=== PATIENT | male | born 1985 | race Caucasian/White ===

== ENCOUNTER 2021-12-20 07:16 | Day surgery (SDC) | payer MEDICAID, SELFPAY ==
--- NOTE | 2021-12-19 21:11 | W.PM.DSUDISC ---
Discharge Plan Disposition Patient Disposition: HOME Condition: Good Discharge Details Reason For Visit: EGD and Colonoscopy Attending Provider: Daniel Musa Primary Care Provider: Zelda Shay Home Meds and New Rx's Prescriptions: Continued esomeprazole magnesium [Nexium] 20 mg capsule,delayed release(DR/EC) 20 mg PO DAILY polyethylene glycol 3350 17 gram/dose powder 238 g PO ONCE Qty: 238 0RF Rx Instructions: take per colonoscopy instructions bisacodyl [Dulcolax (bisacodyl)] 5 mg tablet,delayed release (DR/EC) 5 mg PO ONCE Qty: 4 0RF Rx Instructions: take per colonoscopy instructions Discharge Instructions Instructions: Colonoscopy (DC), Gastric Polyps (DC) Additional Instructions: 1. If tolerated, consume a soft, low fiber diet for 1-2 days. [address] Do not drive, drink alcohol, operate machinery, make critical decisions, or do activities that require coordination or balance for 24 hours. 3. Because air was put into your colon during the procedure, expelling air from your rectum (passing gas or farting) is normal. 4. You may not have a bowel movement for 1-3 days because of the colonoscopy prep. This is normal. 5. You may experience a sore throat for 24 to 48 hours. You may use throat lozenges or gargle with warm salt water to relieve the discomfort. 6. Because air was put into your stomach during the procedure, you may experience some belching. 7. Go directly to the emergency room if you notice any of the following: Develop chills (warm to touch), or if you have a thermometer and your temperature is above 101 Difficulty breathing or difficultly swallowing Persistent vomiting Severe abdominal pain, other than gas cramps Severe chest pain Black, tarry stools Any bleeding ? exceeding one tablespoon 8. Call your physician if the site where your intravenous was started becomes red, swollen, painful, and warm to touch. 9. Your physician has reviewed your pre-procedure medications. Please continue to take those medications as previously ordered. You will be given specific information/education regarding any changes to your medications before leaving. Activity:: Activity as Tolerated Diet:: As Tolerated Discharge Orders Discharge Orders: Discharge Order (Routine); Ordered 12/20/21 Ordered By: Daniel Musa DS: Diagnosis Discharge Diagnosis (1) Chronic GERD: Status: Acute Asessment and Plan: I will contact you about the biopsy results
--- NOTE | 2021-12-19 21:12 | W.COLOREPORT ---
Colonoscopy Report Date of procedure: 12/20/21 Pre-op diagnosis general: GERD Post-op diagnosis procedure note: other (Gastric polyp, diverticulosis, hemorrhoids) Procedure: EGD and colonoscopy Surgeon: Nilson Musa Anesthesia Type: General:No Airway Estimated blood loss (mL): 10 Pathology: other (gastric polyp) Complications: None Disposition: same day Indications: Fuad is a 36-year-old male with longstanding gastroesophageal reflux disease. Additionally, he has had a colonoscopy in the past that identified polyps. He was advised to follow-up in 5 years. Prep: Miralax/Dulcolax Procedure Start Time: 08:36 Procedure End Time: :08 Retraction Time: 22 Findings: Gastric polyp along greater curve in the body before the incisura Mild diverticulosis mild hemorrhoids Procedure Description: After the initiation of monitored anesthetic care, and with the assistance of a bite block, I advanced a standard gastroscope through the mouth past the hypopharynx and into the esophagus.? Under the direct vision of the scope, I advanced down the esophagus into the stomach.? Once I entered the stomach, I performed a brief inspection, followed by retroflexion towards the gastric cardia.? This appeared normal.? After that, I gently advanced the scope around the incisura angularis and examined the pylorus.? This also appeared normal.? Next, I advanced the scope through the pylorus into the duodenum.? The mucosa was pink and healthy appearing.? There were no abnormalities.? I was able to visualize bile draining into the duodenum through the ampulla Vater. ?Next, I began retracting the endoscope.? Again, I returned to the stomach which was carefully examined once again. Immediately cephalad to the incisura angularis along the greater curvature, I identified a 0.75 cm polyp. It was slightly pedunculated. I performed a polypectomy using cold forceps. There was minimal bleeding. I then gently desufflated some of the stomach, and withdrew the endoscope into the distal esophagus. The Z-line was normal-appearing around 37 cm. ?Finally, I withdrew the scope along the length of the esophagus taking great care to examine the entirety of the mucosa.? I did not appreciate any abnormalities. Next we moved the patient to the left lateral decubitus position. I began by performing an external anorectal exam.? Perineum and skin were normal, as was the anal verge.? There was mild evidence of fibrosed external hemorrhoids.? Next, I performed a digital rectal exam.? I did not appreciate any abnormal findings.? Next, I advanced a colonoscope into the rectal vault.? I performed retroflexion.? There were mild internal hemorrhoids.? Using insufflation, I then advanced the colonoscope beyond the rectal folds and into the sigmoid colon before advancing towards the cecum.? There were scattered diverticula within the sigmoid colon. The quality of the prep was excellent.? The scope was noted to be in the cecum by identification of the ileocecal valve and appendiceal orifice.? I then began withdrawing the colonoscope using repeated irrigation as necessary for full evaluation of the colonic mucosa. ?Once the scope was withdrawn to the level of the rectum, great care was taken to examine portions of the rectal folds.? Finally, the scope was withdrawn and the patient was brought to the same-day surgery recovery unit as the anesthetic wore off. ?The findings and instructions were shared with the patient prior to discharge.
[2021-12-20 07:15] VITALS: BP 136/94; PULSE 94; RESP 18; TEMP 36.5; O2SAT 100
[2021-12-20] MEDS: Lactated Ringers 1,000 ML 80 ML IV (07:35)
--- NOTE | 2021-12-20 08:14 | W.ANESPRE ---
General Info Date of Service Date Performed: 12/20/21 Height: 5 ft 6.5 in Weight: 85.4 kg Body Mass Index (BMI): 29.9 Surgical Procedure: Operation Date: 12/20/21 08:50 Proposed Procedure Side Surgeon p Colonoscopy/Gastroscopy Daniel Musa MD Meds Allergies and Home Medications Allergies Allergy/AdvReac Type Severity Reaction Status Date / Time Sulfa (Sulfonamide Allergy Intermediate Skin Rash Unverified 12/20/21 07:30 Antibiotics) doxycycline AdvReac Intermediate Fever Unverified 12/20/21 07:30 Home Medication Medication Instructions Recorded esomeprazole magnesium 20 mg 20 mg PO DAILY 09/24/18 capsule,delayed release (Nexium) bisacodyl 5 mg tablet,delayed 5 mg PO ONCE colonscopy bowel prep 11/21/21 release (Dulcolax (bisacodyl)) #4 tabs polyethylene glycol 3350 17 238 g PO ONCE colonoscopy prep 11/21/21 gram/dose oral powder #238 grams Current Visit Medications: Current Medications Generic Name Dose Route Start Last Admin Trade Name Carrie PRN Reason Stop Dose Admin Ringer's Solution 1,000 mls @ 80 mls/hr 12/20/21 06:00 12/20/21 07:35 IV 01/18/22 23:59 80 mls/hr INFUSION CASSY Administration IV Miscellaneous Supplies 1 each 12/20/21 06:00 Iv Access IV 01/18/22 23:59 DIRECTED CASSY Sodium Chloride 0 ml 12/20/21 06:00 Normal Saline Flush 10 Ml Syr IV 01/18/22 23:59 PRN PRN Sodium Chloride 0 ml 12/20/21 06:00 Normal Saline 10 Ml Vial IJ 01/18/22 23:59 DIRECTED PRN Sterile Water 0 ml 12/20/21 06:00 Water,Injection,Sterile 10 Ml Vial IJ 01/18/22 23:59 DIRECTED PRN PFSH Active Problems Active Problems: Problem Status Onset Code Chronic GERD K21.9 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 Family history of hyperlipidemia Z83.438 Heavy alcohol consumption Z72.89 Medical History Medical History Hx of Lyme disease -2014 Surgical History Surgical History S/P arthroscopy of left shoulder Tobacco Smoking/Tobacco Use Status: Former Tobacco Use Passive smoking exposure: Yes Second hand exposure: Yes Alcohol Alcohol Intake: current Alcohol intake frequency: 0-2 drinks per day Alcohol type: beer and hard liquor Substance Use Substance use: Never Substance use type: does not use Vital Signs and Lab Results Vital Signs Most Recent Vital Signs in EMR: Most Recent Vital Signs Temp Pulse Resp BP Pulse Ox 36.5 C 94 H 18 136/94 H 100 12/20/21 07:15 12/20/21 07:15 12/20/21 07:15 12/20/21 07:15 12/20/21 07:15 Lab Results Blood Type / Crossmatch: No Data to Display Complete Blood Count: No Data to Display Complete Metabolic Panel: No Data to Display Liver Function Panel: No Data to Display Coagulation Panel: No Data to Display Cardiac Panel: No Data to Display Arterial Blood Gas: No Data to Display Venous Blood Gas: No Data to Display Pancreas Panel: No Data to Display Thyroid Panel: No Data to Display Infectious Disease: No Data to Display Blood Cultures: No Data to Display Toxicology Panel: No Data to Display Anesthesia Assessment and Plan Anesthesia History Personal History: No History of Anesthesia Complications Family History: No Family History of Anesthesia Complications Exercise Tolerance Exercise Tolerance: Metabolic Equivalents>4 Pertinent Negatives Pertinent Negatives: No Symptoms of GERD (Well controlled with medication ), No Major Cardiovascular Symptoms or Complaints, No Major Pulmonary Symptoms or Complaints and No History of CVA/TIA Cardiac & Pulmonary Exam Cardiac Exam: Normal S1/S2 Heart Sounds Pulmonary Exam: Clear Bilateral Breath Sounds Implantable Cardiac Device Does patient have a Pacemaker or an ICD?: No Airway Exam Known Difficult Airway: No Mallampati Class: 1 Mouth Opening: Normal (> 3cm) Thyromental Distance: Greater than 3 cm Neck Range of Motion: Full ROM Neck Circumference: Normal Teeth Condition: Normal Dentition Airway Comments: #21 crown # 22 chipped ASA Classification ASA Score: ASA 4 Emergency Case?: No NPO Status NPO Status: NPO Clears >2 hours, Solids >8 hours Anesthesia Plan Resuscitation Status: Full Code Anesthesia Technique: General Anesthesia Airway Planned: Natural Airway Monitors Used: Standard Monitors
[2021-12-20 08:17] VITALS: BMI 29.9
--- NOTE | 2021-12-20 08:38 | STOM_PTH ---
PATIENT: Fuad Murillo LOC: [facility] U#:[id number] AGE/SX: 36/M ROOM: RE12/20/[address]: Daniel Musa MD : 1985 BED: DIS: 12/20/2021 SPEC #: [id number] RECD: 12/20/21 12:41 STATUS: [facility] #: [id number] ARETHA: 12/20/21 08:[address]: Daniel Musa DEPT: Surgical Specimen RECD BY: Ifeoma Albert ENTERED: 12/20/21 12:41 SP TYPE: STOMACH OTHR DR: Zelda Shay MD, DC Tissues: 1 - STOMACH BIOPSY 2 - ESOPHAGUS BIOPSY 3 - STOMACH BIOPSY Procedures: GROSS AND MICRO LEVEL 4 Comments: [id number]
[2021-12-20 09:19] VITALS: BP 134/89; PULSE 83; RESP 12; TEMPC 36.3; O2SAT 97
--- NOTE | 2021-12-20 09:19 | W.ANESPOSTOP ---
Postoperative Evaluation Date, Time and Location Date Performed: 12/20/21 Time Performed: 09:19 Patient Location: Day Surgery Unit Vital Signs Most Recent Imported Vital Signs: Most Recent Vital Signs Temp Pulse Resp BP Pulse Ox 36.5 C 94 H 18 136/94 H 100 12/20/21 07:15 12/20/21 07:15 12/20/21 07:15 12/20/21 07:15 12/20/21 07:15 Most Recent Manually Entered Vital Signs: Adult Blood Pressure: 134/89 Heart Rate: 83 Respirations: 12 Oxygen Saturation (%): 97 Temperature (C): 36.3 C Pain Score (0-10 Scale): 0 Assessment Mental Status: Awake (Alert & Oriented to Patient Baseline) Airway and Respiratory Function: Patent airway with normal (patient baseline) respiratory exam Cardiovascular Function: Hemodynamically Stable Hydration Status: Adequately Hydrated Nausea & Vomiting: No Nausea or Vomiting Pain: Pt. Denies Any Pain Peripheral Nerve Block: Patient did not receive a nerve block
[2021-12-20 09:20] VITALS: BP 134/89; PULSE 80; RESP 16; TEMP 36.2; O2SAT 97
[2021-12-20 09:50] VITALS: BP 142/92; PULSE 82; RESP 18; TEMP 36.2; O2SAT 97
== END 2021-12-20 10:20 | disposition home or self-care (01) ==
PROVIDERS: PCP Family Medicine; Visit Provider Surgery
PROC: (CPT 43239; principal; 2021-12-20 08:45)
DX: K21.9 Gastro-esophageal reflux disease without esophagitis (principal); Z12.11 Encounter for screening for malignant neoplasm of colon; K31.7 Polyp of stomach and duodenum; K64.8 Other hemorrhoids; K57.30 Diverticulosis of large intestine without perforation or abscess without bleeding; Z86.010 Personal history of colon polyps; K31.89 Other diseases of stomach and duodenum
CPT/HCPCS: 43239; 45378; 88305

== ENCOUNTER 2022-03-18 09:28 | Outpatient (CLI) | payer MEDICAID, SELFPAY ==
[2022-03-18 12:57] LABS: ALT 125 U/L (16-63); AST 58 U/L (15-37); Albumin 4.4 g/dL (3.4-5.0); Alkaline Phosphatase 50 U/L (46-116); Anion Gap 6.8 mmol/L (3-11); BUN 17 mg/dL (7-18); Bilirubin, Total 0.6 mg/dL (0.2-1.0); CO2 29.2 mmol/L (21.0-32.0); CREATININE 1.2 mg/dL (0.70-1.30); Calcium 9.3 mg/dL (8.5-10.1); Calculated LDL 175 mg/dL (<100); Chloride 101 mmol/L (98-107); Cholesterol 255 mg/dL (<200); Estimated GFR 79.38 (mL/min/1.73m2); Glucose 105 mg/dL (74-106); HDL Cholesterol 67 mg/dL (40-60); Potassium 4.5 mmol/L (3.5-5.1); Sodium 137 mmol/L (136-145); TSH (W/Ref FT4) 1.54 uIU/mL (0.36-3.74); Total Protein 7.9 g/dL (6.4-8.2); Triglyceride 65 mg/dL (<150)
[2022-03-18 13:04] LABS: GGT 100 U/L (15-85)
[2022-03-19 10:32] LABS: Lyme Ab w Rflx to Lyme Confirm Negative (Negative)
[2022-03-20 23:00] LABS: Anaplasma phagocytophilum Negative (Negative); B. miyamotoi PCR Negative (Negative); Babesia divergens/MO-1 Negative (Negative); Babesia duncani Negative (Negative); Babesia microti Negative (Negative); Ehrlichia chaffeensis Negative (Negative); Ehrlichia ewingii/canis Negative (Negative); Ehrlichia muris eauclairensis Negative (Negative)
== END 2022-03-18 09:29 | disposition home or self-care (01) ==
LOC: LOS 09:29
PROVIDERS: PCP Family Medicine; Referring Provider Family Medicine; Visit Provider Family Medicine
DX: M25.59 Pain in other specified joint (principal); R29.2 Abnormal reflex; Z83.438 Family history of other disorder of lipoprotein metabolism and other lipidemia; R53.83 Other fatigue
CPT/HCPCS: 36415; 80053; 80061; 87798; 82977; 84443; 86618

== ENCOUNTER 2022-10-09 15:05 | Outpatient (CLI) | payer MEDICAID, SELFPAY ==
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
== END 2022-10-09 15:25 ==
LOC: DI 15:06
PROVIDERS: PCP Family Medicine; Visit Provider Family Medicine
DX: T14.90XA Injury, unspecified, initial encounter (principal); M79.645 Pain in left finger(s)
CPT/HCPCS: 73140

== ENCOUNTER 2023-08-29 09:00 | Emergency (ER) | payer MEDICAID, SELFPAY ==
[2023-08-29 09:08] VITALS: BP 167/135; PULSE 83; RESP 20; TEMP 36.4; O2SAT 99
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
[2023-08-29 10:31] LABS: Bilirubin Small (Negative); Blood Negative (Negative); Clarity Sl Cloudy (Clear); Glucose Negative (Negative); Ketones Trace mg/dL (Negative); Leukocyte Esterase Negative (Negative); Nitrite Negative (Negative); Specific Gravity >= 1.030 (1.005-1.025); Urobilinogen 0.2 mg/dL (Up to 0.2); pH 5.5 (5-8)
[2023-08-29 10:49] LABS: Abs Immature Grans 0.01 10^3/uL (0.0-0.06); Absolute Basophil Count 0.03 10^3/uL (0.0-0.2); Absolute Eosinophil Count 0.07 10^3/uL (0.0-0.7); Absolute Lymphocyte Count 0.76 10^3/uL (1.2-3.4); Absolute Monocyte Count 0.67 10^3/uL (0.1-0.8); Absolute Neutrophil Count 4.59 10^3/uL (1.2-6.7); Basophils % 0.5 %; Eosinophils % 1.1 %; HCT 45.3 % (40.0-50.0); HGB 15.5 g/dL (13.5-17.5); Immature Grans % 0.2 %; Lymphocytes % 12.4 %; MCH 31.3 pg (27.0-33.0); MCHC 34.2 % (32.0-36.0); MCV 91 fL (80-95); MPV 8.8 fL (8.0-11.0); Monocytes % 10.9 %; Neutrophils % 74.9 %; Platelet Count 221 10^3/uL (130-400); RBC 4.96 10^6/uL (4.36-5.78); RDW-SD 40.3 fL; WBC 6.13 10^3/uL (4.4-10.8)
[2023-08-29] MEDS: Omnipaque 350 MG/ML 100 ML BTL IJ (10:54)
[2023-08-29 11:03] LABS: ALT 119 U/L (16-63); AST 50 U/L (15-37); Albumin 4.5 g/dL (3.4-5.0); Alkaline Phosphatase 61 U/L (46-116); Anion Gap 7.7 mmol/L (3-11); BUN 18 mg/dL (7-18); Bilirubin, Direct 0.2 mg/dL (0.0-0.2); Bilirubin, Total 0.7 mg/dL (0.2-1.0); CO2 29.3 mmol/L (21.0-32.0); CREATININE 1.2 mg/dL (0.70-1.30); Calcium 9.3 mg/dL (8.5-10.1); Chloride 100 mmol/L (98-107); Glucose 93 mg/dL (74-106); Lipase 68 U/L (16-77); Potassium 4.5 mmol/L (3.5-5.1); Sodium 137 mmol/L (136-145); Total Protein 8.2 g/dL (6.4-8.2)
[2023-08-29 11:26] VITALS: BP 147/100; PULSE 86; RESP 14; O2SAT 97
[2023-08-29 12:02] VITALS: BP 144/105; PULSE 99; RESP 18; O2SAT 97
== END 2023-08-29 12:03 | disposition home or self-care (01) ==
PROVIDERS: Emergency Provider Physician Assistant; PCP Family Medicine
DX: S22.31XA Fracture of one rib, right side, initial encounter for closed fracture (principal); V86.69XA Passenger of other special all-terrain or other off-road motor vehicle injured in nontraffic accident, initial encounter
CPT/HCPCS: 74177; 80048; 80076; 83690; 99285; 71260; 81003; 85025; 99284; J3490

== ENCOUNTER 2024-01-15 19:04 | Outpatient (REF) | payer MEDICAID, SELFPAY ==
[2024-01-15 19:57] LABS: Abs Immature Grans 0.01 10^3/uL (0.0-0.06); Absolute Basophil Count 0.02 10^3/uL (0.0-0.2); Absolute Eosinophil Count 0.05 10^3/uL (0.0-0.7); Absolute Lymphocyte Count 1.14 10^3/uL (1.2-3.4); Absolute Monocyte Count 0.51 10^3/uL (0.1-0.8); Absolute Neutrophil Count 3.36 10^3/uL (1.2-6.7); Basophils % 0.4 %; HCT 43.7 % (40.0-50.0); HGB 14.3 g/dL (13.5-17.5); Immature Grans % 0.2 %; Lymphocytes % 22.4 %; MCH 31.7 pg (27.0-33.0); MCHC 32.7 % (32.0-36.0); MCV 97 fL (80-95); MPV 9.4 fL (8.0-11.0); Platelet Count 251 10^3/uL (130-400); RBC 4.51 10^6/uL (4.36-5.78); RDW 12.4 % (11.8-14.1); WBC 5.09 10^3/uL (4.4-10.8)
[2024-01-15 20:25] LABS: ALT 137 U/L (16-63); AST 95 U/L (15-37); Albumin 4.4 g/dL (3.4-5.0); Alkaline Phosphatase 46 U/L (46-116); Anion Gap 9.4 mmol/L (3-11); BUN 16 mg/dL (7-18); CO2 28.6 mmol/L (21.0-32.0); Calcium 9.9 mg/dL (8.5-10.1); Chloride 103 mmol/L (98-107); Estimated GFR 97.58 (mL/min/1.73m2); Glucose 93 mg/dL (74-106); Potassium 4.5 mmol/L (3.5-5.1); Sodium 141 mmol/L (136-145); Total Protein 7.6 g/dL (6.4-8.2)
== END 2024-01-15 19:05 | disposition home or self-care (01) ==
LOC: LBN 19:04
PROVIDERS: Nurse Practitioner Family; PCP Family Medicine; Visit Provider Family Medicine
DX: S30.0XXA Contusion of lower back and pelvis, initial encounter (principal); R30.0 Dysuria
CPT/HCPCS: 80053; 85025